=== PATIENT | male | born 1980 | race Caucasian/White ===

== ENCOUNTER 2022-11-16 18:44 | Emergency (ER) | payer MEDICARE, MEDICAID ==
[2022-11-16] MEDS ORDERED: ALBU108A5 IN (22:40)
[2022-11-16] MEDS ORDERED: BENZ100C19 PO (22:40)
[2022-11-17 01:40] VITALS: BP 112/68
== END 2022-11-17 01:41 | disposition home or self-care (01) ==
LOC: EDBD 18:44 → ER 18:44
DX: J06.9 Acute upper respiratory infection, unspecified (principal); I10 Essential (primary) hypertension
CPT/HCPCS: 71045

== ENCOUNTER 2022-11-18 03:09 | Emergency (ER) | payer MEDICARE, MEDICAID ==
[~2022-11-18] VITALS: Ht 172.7 cm; Wt 68.2 kg
[~2022-11-18 03:09] MED LIST: ALBU108A5 IN; BENZ100C19 PO
[2022-11-18 10:35] VITALS: BP 113/62
== END 2022-11-18 10:40 | disposition left against medical advice (07) ==
LOC: ER 03:09
DX: F20.9 Schizophrenia, unspecified (principal); Z76.0 Encounter for issue of repeat prescription; Z53.29 Procedure and treatment not carried out because of patient's decision for other reasons